=== PATIENT | female | born 1990 | race Two or more races ===

== ENCOUNTER 2021-10-05 14:01 | Inpatient (IN) | payer OTHER ==
[~2021-10-05] VITALS: Ht 152.4 cm; Wt 88.0 kg
[2021-10-05] MEDS ORDERED: PRENATAL CAPLE1 EAC1 PO (22:02)
== END 2021-10-08 11:52 | disposition home or self-care (01) | DRG 807 ==
LOC: NST 14:01 → LDR 20:38 → OB/GYN 10-06 18:19
PROVIDERS: ADMIT Specialist; ATTEND Specialist
PROC: 4A1HXFZ Monitoring of Products of Conception, Cardiac Rhythm, External Approach (ICD-10-PCS; 2021-10-05)
PROC: 10E0XZZ Delivery of Products of Conception, External Approach (ICD-10-PCS; principal; 2021-10-06)
PROC: 10907ZC Drainage of Amniotic Fluid, Therapeutic from Products of Conception, Via Natural or Artificial Opening (ICD-10-PCS; 2021-10-06)
PROC: 3E0P7VZ Introduction of Hormone into Female Reproductive, Via Natural or Artificial Opening (ICD-10-PCS; 2021-10-06)
DX: O62.0 Primary inadequate contractions (principal); Z37.0 Single live birth; O99.824 Streptococcus B carrier state complicating childbirth; Z3A.38 38 weeks gestation of pregnancy

== ENCOUNTER 2024-07-07 11:46 | Emergency (ER) | payer OTHER ==
[~2024-07-07] VITALS: Ht 152.4 cm; Wt 83.9 kg
[~2024-07-07 11:46] MED LIST: PRENATAL CAPLE1 EAC1 PO
[2024-07-07] MEDS ORDERED: LEVALBUTEROL HCL 1.25 MG/3 ML SOLUTION IH STA (13:07)
[2024-07-07] MEDS ORDERED: BUDESONIDE 0.5 MG/2 ML AMPUL.NEB IH STA (13:08)
[2024-07-07 13:27] LABS: HEMOGLOBIN 13.7 g/dL (12.0-15.00); MEAN CELL VOLUME 86.5 fL (80.00-100.00); MEAN CORPUSCULAR HEMOGLOBIN 30.4 pg (27.00-32.0); MEAN CORPUSCULAR HGB CONC 35.2 g/dl (32.0-36.0); PLATELET COUNT 405 K/uL (150-450); RED BLOOD COUNT 4.51 M/uL (4.00-6.00); RED CELL DISTRIBUTION WIDTH 12.5 % (11.5-14.5)
[2024-07-07] MEDS ORDERED: BUDESONIDE 0.25 MG/2 ML AMPUL.NEB IH ONE (13:27)
[2024-07-07] MEDS ORDERED: LEVALBUTEROL HCL 0.63 MG/3 ML SOLUTION IH ONE (13:27)
[2024-07-07] MEDS ORDERED: ACETAMINOPHEN 500 MG GEL..CAP PO ONE (13:56)
== END 2024-07-07 15:03 | disposition home or self-care (01) ==
LOC: ER 11:47
PROVIDERS: General Practice
DX: J45.909 Unspecified asthma, uncomplicated (principal)